=== PATIENT | female | born 1950 | race American Indian/Alaskan Native ===

== ENCOUNTER 2017-04-02 10:06 | Day surgery (SDC) | payer MEDICARE, OTHER ==
[~2017-04-02] VITALS: Ht 160 cm; Wt 69.5 kg
[~2017-04-02 10:06] MED LIST: K-Dur20 MEQ PO
[2017-04-02] MEDS ORDERED: ATEN50 (10:55)
[2017-04-02] MEDS ORDERED: Omeprazole20 M1 (10:55)
[2017-04-02] MEDS ORDERED: FOLBIC RF TABL1 EACH (10:56)
== END 2017-04-02 12:55 | disposition home or self-care (01) ==
LOC: ORSCSDS 10:06
PROVIDERS: Internal Medicine Gastroenterology
PROC: 0DBH8ZX Excision of Cecum, Via Natural or Artificial Opening Endoscopic, Diagnostic (ICD-10-PCS; principal; 2017-04-02 11:15)
PROC: 0DBN8ZX Excision of Sigmoid Colon, Via Natural or Artificial Opening Endoscopic, Diagnostic (ICD-10-PCS; principal; 2017-04-02 11:15)
PROC: 0DBK8ZX Excision of Ascending Colon, Via Natural or Artificial Opening Endoscopic, Diagnostic (ICD-10-PCS; principal; 2017-04-02 11:15)
PROC: 0DBM8ZX Excision of Descending Colon, Via Natural or Artificial Opening Endoscopic, Diagnostic (ICD-10-PCS; principal; 2017-04-02 11:15)
DX: Z12.11 Encounter for screening for malignant neoplasm of colon (principal); D12.0 Benign neoplasm of cecum; D12.2 Benign neoplasm of ascending colon; K63.5 Polyp of colon; F17.210 Nicotine dependence, cigarettes, uncomplicated; I10 Essential (primary) hypertension; Z79.899 Other long term (current) drug therapy
CPT/HCPCS: 88305; J7120

== ENCOUNTER 2018-10-04 02:17 | Emergency (ER) | payer MEDICARE, OTHER ==
[~2018-10-04] VITALS: Ht 157.5 cm; Wt 68.0 kg
[~2018-10-04 02:17] MED LIST changes: +ATEN50; +FOLBIC RF TABL1 EACH; +Omeprazole20 M1
[2018-10-04] MEDS ORDERED: Roxicodone5 MG PO (06:15)
== END 2018-10-04 07:13 | disposition home or self-care (01) ==
LOC: ER 02:17
DX: S52.612A Displaced fracture of left ulna styloid process, initial encounter for closed fracture (principal); S52.502A Unspecified fracture of the lower end of left radius, initial encounter for closed fracture; I10 Essential (primary) hypertension; Z87.891 Personal history of nicotine dependence; Z88.0 Allergy status to penicillin; Z88.8 Allergy status to other drugs, medicaments and biological substances; Z79.899 Other long term (current) drug therapy; W18.30XA Fall on same level, unspecified, initial encounter
CPT/HCPCS: 25605; 36415; 73100; 73110; 80048; 93005; 99152; 99283-25; A9270; A9270-GY; J2704; J7030

== ENCOUNTER 2018-10-09 06:13 | Day surgery (SDC) | payer MEDICARE, OTHER ==
[~2018-10-09] VITALS: Ht 160 cm; Wt 67.3 kg
[~2018-10-09 06:13] MED LIST changes: +Roxicodone5 MG PO
[2018-10-09] MEDS ORDERED: AMLO10 (07:01)
[2018-10-09] MEDS ORDERED: CENTRUM SILVER1 EAC3 (07:02)
--- NOTE | 2018-10-09 07:38 | NUR ---
10/09/[address] OK TO PROCEED WITH ANCEF. PT HAS HISTORY OF PCN ALLERGY RESULTING IN RASH.
--- NOTE | 2018-10-09 08:16 | NUR ---
10/09/18 0816 Valarie Espinal WHEN REMOVING THE PATIENT'S SPLINT, I WENT TO USE MY SCISSORS TO CUT AWAY THE THICK WEBRIL LAYERS AND FOUND THAT I CAUSED A SKIN TEAR TO THE MID FOREARM. DR. DENNEY MADE AWARE. CONTINUED WITH THE ALCOHOL WASH AND DURAPREP PER HIS INSTRUCTIONS.
== END 2018-10-09 10:32 | disposition home or self-care (01) ==
LOC: ORSCSDS 06:13
PROVIDERS: Orthopaedic Surgery
PROC: 0PSJ04Z Reposition Left Radius with Internal Fixation Device, Open Approach (ICD-10-PCS; principal; 2018-10-09 07:30)
DX: S52.502A Unspecified fracture of the lower end of left radius, initial encounter for closed fracture (principal); I10 Essential (primary) hypertension; E78.5 Hyperlipidemia, unspecified; Z79.899 Other long term (current) drug therapy
CPT/HCPCS: C1713; J0690; J2250; J2704; J3010; J7120

== ENCOUNTER → 2019-12-22 | Outpatient (CLI) | payer MEDICARE, OTHER ==
[~2019-12-22] MED LIST changes: +AMLO10; +CENTRUM SILVER1 EAC3
== END ==
LOC: LAB 17:13 → LAB SHORT 17:13
DX: D45 Polycythemia vera (principal)
CPT/HCPCS: 82668

== ENCOUNTER → 2022-06-07 | Outpatient (CLI) | payer MEDICARE ==
[2022-06-07 17:25] LABS: BASOPHILS ABSOLUTE AUTO 0.07 K/mm3 (0.00-0.23); BASOPHILS PERCENT AUTO 1 % (0-2); EOSINOPHILS ABSOLUTE AUTO 0.49 K/mm3 (0.00-0.68); EOSINOPHILS PERCENT AUTO 6 % (0-6); Hematocrit 42.2 % (33.0-51.0); Hemoglobin 14.4 g/dL (11.5-16.0); IMMATURE GRAN ABSOLUTE AUTO 0.03 K/mm3 (0.00-0.10); IMMATURE GRAN PERCENT AUTO 0 % (0-1); LYMPHOCYTES ABSOLUTE AUTO 1.33 K/mm3 (0.84-5.20); LYMPHOCYTES PERCENT AUTO 16 % (21-46); MONOCYTES ABSOLUTE AUTO 0.53 K/mm3 (0.16-1.47); MONOCYTES PERCENT AUTO 6 % (4-13); Mean Corpuscular HGB 32.9 pg (26.0-34.0); Mean Corpuscular HGB Conc 34.1 g/dL (31.5-36.5); Mean Corpuscular Volume 96 fL (80-100); Mean Platelet Volume 9.8 fL (9.1-12.4); NEUTROPHILS ABSOLUTE AUTO 5.94 K/mm3 (1.96-9.15); NEUTROPHILS PERCENT AUTO 71 % (41-73); Platelet Count 235 K/mm3 (150-400); RDW Coefficient Variation 12.5 % (11.7-14.2); RDW Standard Deviation 43.6 fL (35.1-46.3); Red Blood Cell Count 4.38 M/mm3 (3.80-5.20); White Blood Cell Count 8.39 K/mm3 (4.00-11.30)
[2022-06-07 17:38] LABS: Alanine Aminotransfer (ALT/SGP 14 U/L (12-78); Albumin, Blood 3.2 g/dL (3.4-5.0); Albumin/Globulin Ratio 0.7 (0.8-1.8); Alk Phos 111 U/L (50-136); Anion Gap 2 mmol/L (6-16); Aspartate Aminotrans (AST/SGOT 22 U/L (12-37); Bilirubin, Total 0.6 mg/dL (0.1-1.0); Blood Urea Nitrogen 7 mg/dL (8-24); Bun/Creatinine Ratio 10.9 (12.0-20.0); CO2, Blood 28 mmol/L (21-32); Chloride, Blood 108 mmol/L (98-108); Cholesterol 184 mg/dL (50-200); Creatinine, Blood 0.64 mg/dL (0.40-1.00); Globulin, Blood 4.3 g/dL (2.2-4.0); Glomerular Filtration Rate 94 (60-); Glucose, Blood 98 mg/dL (70-99); HDL Cholesterol 61 mg/dL (>39); LDL/HDL RATIO 0.9; Low Density Lipoprotein Chol 56 mg/dL (0-110); Potassium, Blood 4.3 mmol/L (3.5-5.5); Sodium, Blood 138 mmol/L (136-145); Total Protein, Blood 7.5 g/dL (6.4-8.2); Triglycerides 333 mg/dL (30-160); Very Low Density Lipoprot Chol 66 mg/dL (6-32)
[2022-06-08 16:10] LABS: HIV AB/P24 AG SCREEN Non Reactive (Non Reactive)
== END | disposition home or self-care (01) ==
LOC: LAB 14:59 → LAB SHORT 14:59
PROVIDERS: Family Medicine
DX: Z00.00 Encounter for general adult medical examination without abnormal findings (principal); Z11.59 Encounter for screening for other viral diseases; E78.49 Other hyperlipidemia; E55.9 Vitamin D deficiency, unspecified; I10 Essential (primary) hypertension
CPT/HCPCS: 80053; 80061; 82306; 85025; 86803; 87389